=== PATIENT | male | born 1970 | race Caucasian/White ===

== ENCOUNTER 2023-07-17 10:55 | Emergency (ER) | payer BC, SELFPAY ==
[2023-07-17 11:08] VITALS: BP 147/104
[2023-07-17 11:29] VITALS: BMI 35.9
--- NOTE | 2023-07-17 12:24 | ED.MUSCINJ ---
HPI-Injury
General
Chief Complaint: Musculo-Skeletal Complaint
Source: patient
Exam Limitations: none
Time Seen by Provider: 07/17/23 11:20
Nursing documentation reviewed up to this point in time: agreed with
Travel History
Have you had any contact with someone who has COVID-19?: No
Do you have any symptoms of coronavirus? Fever > 100 degrees, chills, cough, shortness of breath, sore throat, loss of taste or smell, muscle aches, or headache?: No
History of Present Illness-Injury
Initial Injury comments:
53-year-old male with history HTN, HLD states yesterday out in the snow he slipped on ice fell injuring his left ankle. He has been unable to weight-bear since, the ankle has swollen, he got crutches at the drugstore and has been using them. He
states pain is minimal at rest. He denies any other injury.
Past History
Past History
ED Past Medical History: HTN and Hypercholesterolemia
ED Past Surgical History: None
Social History
Tobacco: Non-smoker
Personal:
Living: with family
Employment: Employed
Review of Systems
Review of Systems
Allergies reviewed?: Yes
All Other Systems: ROS reviewed and negative except as documented in HPI and ROS
Musculoskeletal: Reports other (pain, swelling left ankle)
Musculoskeletal Injury Exam
Musculoskeletal Injury Exam
Left Ankle:
Pain with Movement?: Moderate
Tender to palpation?: Moderate
Soft tissue swelling?: Moderate
Joint instability?: No
Malalignment/deformity?: No
Range of motion: Limited
Distal skin color and temperature: normal-warm & good color
Capillary Refill: normal
Normal distal neurovascular exam?: Yes
Phy Exam
Physical Exam
Physical Exam:
GENERAL: No acute distress. A&Ox3.
CONSTITUTIONAL: Afebrile.
RESPIRATORY: Regular respirations, nonlabored, lungs clear.
CARDIOVASCULAR: Regular rate and rhythm, no murmurs, no rubs.
MUSCULOSKELETAL: Moves with ease. Well perfused.
SKIN: Warm, dry, pink
PSYCH: Normal mood and affect. Well kept, interactive and appropriate
NEUROLOGIC: Awake, alert and oriented. No focal neurological deficits
Injury Course
Orders/Labs/Results
Orders:
Orders
07/17/23 11:07
Ankle, left 3 view CR [CR Ankle - Left Min 3 Views ] Urgent
Comment:
Reason For Exam: pain injury
07/17/23 12:14
Short Leg Left-Treatment ONCE
Procedures
Splint Check
Splint checked by provider?: Yes
Circulation/Movement/Sensation post splint application: brisk cap refill and full sensation
MDM/Problems Addressed
Differential Diagnosis Includes:
fracture, sprain
MDM/Problems Addressed:
53-year-old male with history HTN, HLD states yesterday out in the snow he slipped on ice fell injuring his left ankle. He has been unable to weight-bear since, the ankle has swollen, he got crutches at the drugstore and has been using them. He
states pain is minimal at rest. He denies any other injury.
X-ray of left ankle initially read by this examiner: There is a minimally displaced comminuted fracture of the distal fibula and widened mortise
Posterior and U splint applied. Referred to orthopedics
Pt states not much pain
Serafin Campbell texted with pictures. He will see pt in office 9:30 Wednesday to set up surgery.
*Critical Care Note
Total Time (30-74mins, 75-104mins- exclusive of procedures): Not Applicable
ED Attending Note
-
Portions of this chart may have been created with voice recognition software.� Occasional wrong word or��sound alike� substitutions may have occurred due to the inherent limitations of voice recognition software.
Discharge Plan
Departure
Patient Disposition: Home (Routine Discharge)
Date of Disposition: 07/17/23
Time of Disposition: 12:32
Patient with high blood pressure during this ER visit?: Yes
Condition: Good
Discharge Problem:
Closed left ankle fracture
Instructions: How to Use Crutches, Ankle Fracture (DC), Using Cold for Pain
Prescriptions:
No Action
erythromycin 1 APPLIC ointment
3.5 gm OP TID Qty: 1 0RF
amoxicillin-pot clavulanate 875 MG/125 MG tablet
1 tab PO Q12 Qty: 20 0RF
Referrals:
NONE,* [Family Provider] -
Grzegorz Patel MD [Active] - Call in 1-3 days for appt
Activity Restrictions/Additional Instructions:
As we discussed, call the orthopedic doctors office first thing Wednesday morning. Tylenol or ibuprofen as needed for pain. Rest with the leg elevated to the level of your heart is much as you can. Use the crutches with no weightbearing.
Dr. Patle will see you in the [place] office on Wednesday 9:30 a.m. Arrive 15 min early. You will need surgery.
Interventions
Interventions:
*Risk Screen - Suicide Last Done: 07/17/23 11:30
*General Assessment Last Done: 07/17/23 11:30
*Neglect/Abuse Screening Last Done: 07/17/23 11:30
ED- Fall Risk Assessment Last Done: 07/17/23 11:30
*ED COVID-19 Vaccine History Last Done: 07/17/23 11:08
*Nursing Disposition Last Done: 07/17/23 13:15
ED-Musculoskeletal Assessment Last Done: 07/17/23 11:30
Discharge Date and Time
Discharge Date/Time: 07/17/23 13:16
== END 2023-07-17 13:16 | disposition home or self-care (01) ==
LOC: EMR 10:55
PROVIDERS: EMERGENCY PHYSICIAN Emergency Medicine
DX: S82.892A Other fracture of left lower leg, initial encounter for closed fracture (principal); S90.02XA Contusion of left ankle, initial encounter; W00.0XXA Fall on same level due to ice and snow, initial encounter; Y92.009 Unspecified place in unspecified non-institutional (private) residence as the place of occurrence of the external cause; I10 Essential (primary) hypertension; E78.00 Pure hypercholesterolemia, unspecified
CPT/HCPCS: 99283; 29515; 73610